=== PATIENT | male | born 1945 ===

== ENCOUNTER 2017-12-07 10:43 | Outpatient (CLI) | payer OTHER | END 2017-12-07 11:00 | disposition home or self-care (01) | LOC: OFIC 805 10:43 | DX: H90.3 Sensorineural hearing loss, bilateral (principal); H93.11 Tinnitus, right ear ==

== ENCOUNTER 2022-09-29 08:41 | Outpatient (CLI) | payer OTHER | END 2022-09-29 08:46 | disposition home or self-care (01) | LOC: RX STUDY 08:41 | PROVIDERS: ATTEND Internal Medicine Pulmonary Disease | DX: R13.10 Dysphagia, unspecified (principal); G47.33 Obstructive sleep apnea (adult) (pediatric); I10 Essential (primary) hypertension; Z95.5 Presence of coronary angioplasty implant and graft; J44.9 Chronic obstructive pulmonary disease, unspecified; I48.0 Paroxysmal atrial fibrillation; Z95.0 Presence of cardiac pacemaker; I25.10 Atherosclerotic heart disease of native coronary artery without angina pectoris ==